=== PATIENT | male | born 1980 | race Caucasian/White ===

== ENCOUNTER 2019-02-07 08:09 | Emergency (ER) | payer OTHER ==
[~2019-02-07] VITALS: Ht 172.7 cm; Wt 65.8 kg
[~2019-02-07 08:09] MED LIST: ACYCLOVIR 800800 MG PO; OCUFLOX10 ML OP; PODOFILOX3.5 ML TP; VICODIN 5-3001 EACH PO; [UNRECOGNIZED DRUG - REMARK]
[2019-02-07 08:16] VITALS: BP 122/76
[2019-02-07] MEDS ORDERED: MEDROLDOSEPACK PO (08:28)
== END 2019-02-07 08:48 | disposition home or self-care (01) ==
LOC: M.ERS 08:09
DX: L55.9 Sunburn, unspecified (principal); R60.0 Localized edema; Z87.891 Personal history of nicotine dependence